=== PATIENT | male | born 1955 | race Caucasian/White ===

== ENCOUNTER 2016-10-20 00:49 | Emergency (ER) | payer BC, OTHER ==
[~2016-10-20] VITALS: Ht 185.4 cm; Wt 108.9 kg
[2016-10-20] MEDS ORDERED: METO25TA74 PO (01:04)
[2016-10-20] MEDS ORDERED: LISI10TA2 PO (01:04)
[2016-10-20] MEDS ORDERED: TOUJ1.2I SC (01:04)
[2016-10-20] MEDS ORDERED: GEMF600T PO (01:04)
[2016-10-20] MEDS ORDERED: GLIP10TA6 PO (01:04)
[2016-10-20] MEDS ORDERED: LOVA40TA PO (01:04)
[2016-10-20] MEDS ORDERED: ASPI81TA85 PO (01:04)
[2016-10-20] MEDS ORDERED: FLOM5CAP PO (01:04)
[2016-10-20 01:25] LABS: BASO % 0.4 % (0.0-1.0); EOS # 0.4 K/mm3 (0.0-0.50); EOS % 3.6 % (0.0-3.0); LARGE UNSTAINED CELL # 0.2 K/mm3 (0.0-0.4); LARGE UNSTAINED CELL % 2.2 % (0.0-4.0); LYMPH # 2.3 K/mm3 (1.5-4.5); LYMPH % 23.6 % (24.0-44.0); MEAN CORPUSCULAR HEMOGLOBIN 31.1 pg (27.0-33.0); MEAN CORPUSCULAR HGB CONC 34.2 g/dl (32.0-36.5); MONO # 0.5 K/mm3 (0.0-0.8); MONO % 5.7 % (0.0-5.0); NEUTROPHILS # 6.1 K/mm3 (1.8-7.7); NEUTROPHILS % 64.4 % (36.0-66.0); PLATELET COUNT, AUTOMATED 270 k/mm3 (150-450); RED CELL DISTRIBUTION WIDTH 14.2 % (11.5-14.5); WHITE BLOOD COUNT 9.5 K/mm3 (4.0-10.0)
[2016-10-20 01:44] LABS: ANION GAP 7 MEQ/L (8-16); BLOOD UREA NITROGEN 21 MG/DL (7-18); CALCIUM LEVEL 7.4 MG/DL (8.8-10.2); CARBON DIOXIDE LEVEL 28 MEQ/L (21-32); CHLORIDE LEVEL 108 MEQ/L (98-107); CREATININE FOR GFR 1.19 MG/DL (0.70-1.30); GLOMERULAR FILTRATION RATE > 60.0 (>49); GLUCOSE, FASTING 196 MG/DL (80-110); POTASSIUM SERUM 3.8 MEQ/L (3.5-5.1); SODIUM LEVEL 143 MEQ/L (136-145)
[2016-10-20] MEDS ORDERED: AMPICILLIN SOD/SULBACTAM SOD 3 GM in D5W MINI-BAG PLUS 100 ML IV ONE (01:45)
[2016-10-20] MEDS ORDERED: AUGM500T34 PO (01:58)
[2016-10-20 02:16] VITALS: BP 149/86
--- NOTE | 2016-10-20 02:48 | REP ---
Clinical: Cellulitis. Ulceration. Technique: AP and lateral views of the right foot. Findings: Soft-tissue swelling with subcutaneous emphysema and ulceration surrounds at the first metatarsophalangeal joint. Underlying degenerative changes include periarticular spurring, increase sclerosis and heterogeneity. No significant periosteal reaction is appreciated. No evidence for acute fracture or dislocation. Second through fifth toes and remainder of the mid/hind foot appear normal. Impression: Swelling with subcutaneous emphysema and ulceration as well as underlying degenerative changes involving the first toe. Osteomyelitis cannot be excluded based on radiographic evaluation. Signed by Saman Lynn MD 10/20/2016 02:40 A
== END 2016-10-20 02:17 | disposition home or self-care (01) ==
LOC: EDBD 00:49 → M ED 02:08
DX: L97.519 Non-pressure chronic ulcer of other part of right foot with unspecified severity (principal); E11.621 Type 2 diabetes mellitus with foot ulcer; I10 Essential (primary) hypertension; E78.5 Hyperlipidemia, unspecified; N40.0 Benign prostatic hyperplasia without lower urinary tract symptoms; Z87.891 Personal history of nicotine dependence; Z79.899 Other long term (current) drug therapy; Z79.82 Long term (current) use of aspirin; Z79.4 Long term (current) use of insulin; Z88.8 Allergy status to other drugs, medicaments and biological substances